=== PATIENT | male | born 1950 | race Caucasian/White ===

== ENCOUNTER → 2017-07-16 | Outpatient (CLI) | payer OTHER | LOC: BRMIMAGING 13:59 | PROVIDERS: ATTEND Physician Assistant Medical | DX: S62.316A Displaced fracture of base of fifth metacarpal bone, right hand, initial encounter for closed fracture (principal); S62.317A Displaced fracture of base of fifth metacarpal bone, left hand, initial encounter for closed fracture; M18.11 Unilateral primary osteoarthritis of first carpometacarpal joint, right hand; M18.12 Unilateral primary osteoarthritis of first carpometacarpal joint, left hand | CPT/HCPCS: 73130-PO ==

== ENCOUNTER → 2017-08-31 | Outpatient (CLI) | payer OTHER | LOC: BRMIMAGING 10:51 | PROVIDERS: ATTEND Family Medicine | DX: S62.316D Displaced fracture of base of fifth metacarpal bone, right hand, subsequent encounter for fracture with routine healing (principal); S62.317D Displaced fracture of base of fifth metacarpal bone, left hand, subsequent encounter for fracture with routine healing | CPT/HCPCS: 73130-PO ==